=== PATIENT | female | born 1990 | race Caucasian/White ===

== ENCOUNTER 2023-03-05 07:49 | Emergency (ER) | payer MEDICAID, OTHER ==
[~2023-03-05] VITALS: Ht 157.5 cm; Wt 80.0 kg
[2023-03-05 09:47] LABS: Urine Bacteria FEW /hpf (None Seen); Urine Blood 1+ /uL (Negative); Urine Specific Gravity 1.011 (1.001-1.035); Urine Sperm PRESENT /hpf (None Seen); Urine WBC 3 /hpf (0 - 5)
== END 2023-03-05 14:35 | disposition home or self-care (01) ==
LOC: ER 07:49
DX: O46.91 Antepartum hemorrhage, unspecified, first trimester (principal); R10.2 Pelvic and perineal pain; Z3A.01 Less than 8 weeks gestation of pregnancy
CPT/HCPCS: 36415; 76801; 76817; 81001; 84702